=== PATIENT | female | born 1975 | race Hispanic/Latino ===

== ENCOUNTER → 2018-06-25 | Outpatient (REF) | payer OTHER ==
[2018-06-27 14:12] LABS: HPV HYBRID CAPTURE II Positive (Negative)
== END ==
LOC: M LAB REF 19:07
PROVIDERS: ATTEND Advanced Practice Midwife
DX: Z12.4 Encounter for screening for malignant neoplasm of cervix (principal)

== ENCOUNTER → 2018-12-02 | Outpatient (REF) | payer OTHER | LOC: M LAB REF 17:15 | PROVIDERS: ATTEND Specialist | DX: R87.612 Low grade squamous intraepithelial lesion on cytologic smear of cervix (LGSIL) (principal) ==

== ENCOUNTER 2019-02-18 07:06 | Day surgery (SDC) | payer OTHER ==
[~2019-02-18] VITALS: Ht 167.6 cm; Wt 70.8 kg
[~2019-02-18 07:06] MED LIST: LIDOCAINE 1% MDV 20ML VIAL SQ PRN; LR 1,000 ML IV ONE
[2019-02-18 07:38] LABS: HEMATOCRIT 34.1 % (36.0-47.0); HEMOGLOBIN 11.1 g/dl (12.0-15.5); MEAN CORPUSCULAR HEMOGLOBIN 29.3 pg (27.0-33.0); MEAN CORPUSCULAR HGB CONC 32.6 g/dl (32.0-36.5); PLATELET COUNT, AUTOMATED 371 10^3/uL (150-450); RED BLOOD COUNT 3.79 10^6/uL (4.00-5.40); WHITE BLOOD COUNT 8.2 10^3/uL (4.0-10.0)
[2019-02-18] MEDS ORDERED: BUPIVACAINE HCL 0.25% 30 ML VIAL As Ordered ONE (08:00)
[2019-02-18] MEDS ORDERED: PROPOFOL 200 MG/20 ML VIAL As Ordered ONE (08:35)
[2019-02-18] MEDS ORDERED: LIDOCAINE 2% INJ 100 MG/5 ML SDV (FOR ANES.) As Ordered ONE (08:35)
[2019-02-18] MEDS ORDERED: KETOROLAC 60 MG/2 ML VIAL (J1885) As Ordered ONE (08:35)
[2019-02-18] MEDS ORDERED: MIDAZOLAM INJ 2 MG/2 ML VIAL (J2250) As Ordered ONE (08:35)
[2019-02-18] MEDS ORDERED: ONDANSETRON 4MG/2ML VIAL (J2405) As Ordered ONE (08:35)
[2019-02-18] MEDS ORDERED: fentaNYL 100 MCG/2 ML INJECTION (J3010) As Ordered ONE (08:35)
[2019-02-18] MEDS ORDERED: dexameTHASONE 4 MG/ML 1ML VIAL (J1100) As Ordered ONE (08:35)
[2019-02-18] MEDS ORDERED: ceFAZolin 2 GM/D5W 50 ML IV BAG (J0690 PER 500MG) As Ordered ONE (08:48)
[2019-02-18] MEDS ORDERED: ONDANSETRON 4MG/2ML VIAL (J2405) IV PRN (09:45)
[2019-02-18] MEDS ORDERED: PERCOCET 5MG/325MG TAB PO PRN ×2 (09:45)
[2019-02-18] MEDS ORDERED: fentaNYL 100 MCG/2 ML INJECTION (J3010) IV PRN (09:45)
[2019-02-18] MEDS ORDERED: LR 1,000 ML IV SCH ×2 (09:45)
[2019-02-18] MEDS ORDERED: OXYC1TAB23 PO (10:38)
--- NOTE | 2019-02-18 11:30 | RO ---
DATE OF PROCEDURE: 02/18/2019 PREOPERATIVE DIAGNOSIS: Stress urinary incontinence. POSTOPERATIVE DIAGNOSIS: Stress urinary incontinence. PROCEDURE: Tension free vaginal tape, obturator approach, cystoscopy. SURGEON: Sachin Bryant MD WEB PRESSMAN: ANESTHESIA: General endotracheal. ESTIMATED BLOOD LOSS: 20 mL. URINE OUTPUT: 20 mL. FINDINGS: Normal vagina. Normal bladder upon cystoscopy as well as urethra. OPERATIVE SUMMARY: The patient was taken to the operating room where general endotracheal anesthesia was induced. She was prepped and draped in a sterile fashion in dorsal lithotomy position. The bladder was emptied with a catheter. The appropriate areas in the groin were marked with a marking pen. A dilute solution of 0.25% Marcaine was injected into the groin sites as well as the midline vagina. The midline vagina, approximately 1 cm from the urethral meatus was grasped with an Allis clamp in two locations. A vertical incision was created with a scalpel. The edges of the vaginal incision were grasped with the Allis clamp. Metzenbaum scissors were used to dissect the perivesical space bilaterally. A wing guide was placed into the right perivesical space. A GYNECARE TVT device was placed over the wing guide and through the incision. It passed through the obturator foramen and exited through the groin at the predetermined location. The same was performed on the opposite side. The mesh along with protective sheath was pulled into place. Opal clamp was placed between the mesh and the urethra to ensure a tension free application. The protective sheath was then removed. Excess mesh was excised. The vaginal incision was irrigated with saline. The vagina was closed with #2-0 Vicryl interrupted sutures. Cystoscopy was performed using a 70 degree cystoscope. There was on evidence of injury to the bladder or urethra. Bilateral ureteral jets were identified. The cystoscope was removed. Sponge, instrument and needle counts were correct. The patient was extubated and went to the recovery room in stable condition.
== END 2019-02-18 12:06 | disposition home or self-care (01) ==
LOC: M SDC 07:06 → MERGE 12:00 → M SDC 12:06
PROVIDERS: ATTEND Specialist
DX: N39.3 Stress incontinence (female) (male) (principal)
CPT/HCPCS: 36415; 57288; 81025; 85027; C1771; J0690; J1100; J1885; J2250; J2405; J3010

== ENCOUNTER → 2019-03-24 | Outpatient (REF) | payer OTHER ==
[~2019-03-24] MED LIST changes: -LIDOCAINE 1% MDV 20ML VIAL SQ PRN; -LR 1,000 ML IV ONE; +OXYC1TAB23 PO
[2019-03-24 18:02] LABS: APPEARANCE, URINE HAZY (CLEAR); BACTERIA, URINE AUTO 3+ (NEGATIVE); BILIRUBIN, URINE AUTO NEGATIVE (NEGATIVE); BLOOD, URINE BLOOD NEGATIVE (NEGATIVE); COLOR, URINE YELLOW (YELLOW); GLUCOSE, URINE (UA) AUTO NEGATIVE (NEGATIVE); KETONE, URINE AUTO NEGATIVE (NEGATIVE); LEUKOCYTE ESTERASE, URINE AUTO TRACE (NEGATIVE); MUCUS, URINE SMALL (NEGATIVE); NITRITE, URINE AUTO POSITIVE (NEGATIVE); PROTEIN, URINE AUTO NEGATIVE (NEGATIVE); RBC, URINE AUTO 1 /HPF (0-3); SPECIFIC GRAVITY URINE AUTO 1.012 (1.002-1.035); SQUAMOUS EPITHELIAL CELL UR AU 1 /HPF (0-6); UROBILINOGEN, URINE AUTO 0.2 mg/dL (0.0-2.0); WBC, URINE AUTO 5 /HPF (0-3)
== END ==
LOC: M SFHCWAGY 16:52
PROVIDERS: ATTEND Specialist
DX: R30.0 Dysuria (principal)

== ENCOUNTER → 2019-05-06 | Outpatient (CLI) | payer OTHER ==
--- NOTE | 2019-05-06 16:06 | REPMRS ---
Patient History The patient states she had a clinical breast exam in 2019. Family history of colorectal cancer in maternal grandmother. Patient states she had a left breast lumpectomy years ago that was negative. Priors no longer available Digital Woman Screen Mammo: May 06, 2019 - Exam #: [id number] Bilateral CC and MLO view(s) were taken. Technologist: Kendra Chicas, Technologist No prior studies available for comparison. FINDINGS: The breast tissue is heterogeneously dense. This may lower the sensitivity of mammography. There is no evidence of dominant mass, architectural distortion, or grouped microcalcification typical of malignancy. Assessment: BI-RADS/ACR category 1 mammogram. Negative Mammogram. Recommendation Routine screening mammogram of both breasts in 1 year (for women over age 40). This patient's Lifetime Breast Cancer RIsk is estimated at 10.0 %. This mammogram was interpreted with the aid of an FDA-approved computer-aided dectection system. Electronically Signed By: Eleazar Dan MD 05/06/19 [id number]
== END ==
LOC: M WHC 15:17
PROVIDERS: ATTEND Specialist
DX: Z12.31 Encounter for screening mammogram for malignant neoplasm of breast (principal)

== ENCOUNTER 2019-10-16 12:33 | Emergency (ER) | payer OTHER ==
[2019-10-16] MEDS ORDERED: ZOSYN 3.375GM VIAL (J2543) ONE (14:17)
[2019-10-16] MEDS ORDERED: PANTOPRAZOLE 40MG VIAL (C9113 PER 1) As Ordered ONE (14:17)
[2019-10-16] MEDS ORDERED: ACETAMINOPHEN 500 MG TAB ONE (14:17)
[2019-10-16] MEDS ORDERED: KETOROLAC 30 MG/ML 1ML VIAL ONE (14:17)
[2019-10-16] MEDS ORDERED: PANTOPRAZOLE 40MG VIAL (C9113 PER 1) ONE (14:17)
[2019-10-16] MEDS ORDERED: ACETAMINOPHEN 500 MG TAB As Ordered ONE (14:18)
[2019-10-16] MEDS ORDERED: KETOROLAC 30 MG/ML 1ML VIAL As Ordered ONE (17:32)
[2019-10-16] MEDS ORDERED: ZOSYN 3.375GM VIAL (J2543) As Ordered ONE (17:32)
[2019-11-17 12:37] LABS: BASO % 0.4 % (0.0-1.0); EOS # 0.1 10^3/uL (0.0-0.5); EOS % 1.3 % (0.0-3.0); HEMATOCRIT 34.8 % (36.0-47.0); HEMOGLOBIN 11.2 g/dl (12.0-15.5); LYMPH # 2.2 10^3/uL (1.5-5.0); LYMPH % 23.5 % (24.0-44.0); MEAN CORPUSCULAR HEMOGLOBIN 29.2 pg (27.0-33.0); MEAN CORPUSCULAR HGB CONC 32.2 g/dl (32.0-36.5); MEAN CORPUSCULAR VOLUME 90.6 fl (80.0-96.0); MONO # 0.6 10^3/uL (0.0-0.8); MONO % 6.5 % (0.0-5.0); NEUTROPHILS # 6.3 10^3/uL (1.5-8.5); NEUTROPHILS % 68.1 % (36.0-66.0); PLATELET COUNT, AUTOMATED 323 10^3/uL (150-450); RED BLOOD COUNT 3.84 10^6/uL (4.00-5.40); WHITE BLOOD COUNT 9.3 10^3/uL (4.0-10.0)
--- NOTE | 2019-11-27 09:53 | ECGEPIP ---
[facility] Test Date: 2019-10-16 Pat Name: JHONY JAY Department: Room: - Gender: Female Grab Driver: : 1975 Requested By: EMERGENCY ROOM Order Number: [id number] Reading MD: Reji Cardenas Measurements Intervals [place] Rate: 72 P: 16 WV: 146 QRS: 3 QRSD: 87 T: 19 QT: 382 QTc: 418 Interpretive Statements SINUS RHYTHM POSSIBLE RIGHT VENTRICULAR CONDUCTION DELAY BORDERLINE ECG INCREASED RBBB SEE SCANNED DOWNTIME REPORT
[2019-11-30 11:29] LABS: ALBUMIN 3.5 GM/DL (3.2-5.2); ALT/SGPT 21 U/L (12-78); AMYLASE 74 U/L (25-115); BILIRUBIN,DIRECT 0.4 MG/DL (0.0-0.2); BILIRUBIN,TOTAL 1.9 MG/DL (0.2-1.0); BLOOD UREA NITROGEN 8 MG/DL (7-18); CALCIUM LEVEL 8.8 MG/DL (8.5-10.1); CARBON DIOXIDE LEVEL 24 MEQ/L (21-32); CHLORIDE LEVEL 109 MEQ/L (98-107); CREATININE FOR GFR 0.81 MG/DL (0.55-1.30); GLOMERULAR FILTRATION RATE > 60.0 (>58); GLUCOSE, FASTING 90 MG/DL (70-100); LIPASE 159 U/L (73-393); POTASSIUM SERUM 4.2 MEQ/L (3.5-5.1); SODIUM LEVEL 139 MEQ/L (136-145); TOTAL PROTEIN 7.4 GM/DL (6.4-8.2); TROPONIN I < 0.02 NG/ML (< 0.10)
== END 2019-10-16 20:26 | disposition home or self-care (01) ==
LOC: M ED 12:33
DX: K80.00 Calculus of gallbladder with acute cholecystitis without obstruction (principal); E80.6 Other disorders of bilirubin metabolism; M54.9 Dorsalgia, unspecified
CPT/HCPCS: 71046; 76705; 80048; 80076; 82150; 83690; 84484; 85025; 93005; 96374; 96375; 99284; C9113; J1885; J2543

== ENCOUNTER 2019-11-09 07:16 | Day surgery (SDC) | payer OTHER ==
[~2019-11-09] VITALS: Ht 167.6 cm; Wt 73.4 kg
[2019-11-09] MEDS ORDERED: fentaNYL 100 MCG/2 ML INJECTION (J3010) As Ordered ONE ×2 (08:09→10:27)
[2019-11-09] MEDS ORDERED: MIDAZOLAM INJ 2MG/2ML VIAL (J2250 PER 1MG) As Ordered ONE (08:09)
[2019-11-09] MEDS ORDERED: LIDOCAINE 2% 100MG/5ML SDV (FOR ANES.) As Ordered ONE (08:10)
[2019-11-09] MEDS ORDERED: propofoL 200 MG/20 ML VIAL As Ordered ONE (08:10)
[2019-11-09] MEDS ORDERED: ONDANSETRON 4MG/2ML VIAL As Ordered ONE (08:10)
[2019-11-09] MEDS ORDERED: ROCURONIUM BROMIDE 50 MG/5 ML VIAL As Ordered ONE (08:10)
[2019-11-09] MEDS ORDERED: dexameTHASONE 4 MG/ML 1ML VIAL (J1100 PER 1MG) As Ordered ONE (08:10)
[2019-11-09] MEDS ORDERED: BUPIVACAINE/EPIN 0.25% 30 ML VIAL As Ordered ONE (09:54)
[2019-11-09] MEDS ORDERED: GLYCOPYRROLATE INJ 0.2 MG/ML 2 ML VIAL As Ordered ONE (10:13)
[2019-11-09] MEDS ORDERED: ACETAMINOPHEN 1000MG 100ML IV BTL (OFIRMEV) (J0131 PER 10MG) As Ordered ONE (10:26)
[2019-11-09] MEDS ORDERED: ESMOLOL INJ 100MG/10ML VIAL As Ordered ONE (10:34)
[2019-11-09] MEDS ORDERED: SUGAMMADEX SODIUM 500 MG/5 ML VIAL (BRIDION) As Ordered ONE (10:49)
[2019-11-09] MEDS ORDERED: KETOROLAC 60MG 2ML VIAL As Ordered ONE (10:49)
[2019-11-09] MEDS ORDERED: HYDROMORPHONE HCL 0.5 MG/ 0.5 ML SYRINGE (J1170 PER 1) As Ordered ONE (11:49)
[2019-11-09] MEDS: HYDROMORPHONE HCL 0.5 MG/ 0.5 ML SYRINGE (J1170 PER 1) IV PRN ×4 (11:52→12:12)
[2019-11-09] MEDS ORDERED: NORCO, ANEXSIA 5/325MG TABLET (HYDROcodone/ACETAMINOPHEN) PO PRN (12:00)
[2019-11-09] MEDS ORDERED: ONDANSETRON 4MG/2ML VIAL IV PRN (12:00)
[2019-11-09] MEDS ORDERED: LR 1,000 ML IV SCH (12:00)
[2019-11-09] MEDS ORDERED: fentaNYL 100 MCG/2 ML INJECTION (J3010) IV PRN (12:00)
[2019-11-09] MEDS: oxyCODONE 5MG TAB PO PRN ×2 (12:03→12:35)
[2019-11-09 15:45] VITALS: BP 122/63
--- NOTE | 2019-12-25 06:44 | RO ---
DATE OF OPERATION: 11/09/2019 PREOPERATIVE DIAGNOSIS: Symptomatic cholelithiasis. POSTOPERATIVE DIAGNOSIS: Symptomatic cholelithiasis. PROCEDURE: Robotic cholecystectomy. SURGEON: Osvaldo Shipley DO IGNITER CAPPER: Linda Bautista ANESTHESIA: General. ESTIMATED BLOOD LOSS: 5. COMPLICATIONS: None. INDICATIONS FOR PROCEDURE: The patient is a 44-year-old female who presents with right upper quadrant pain and found to have symptomatic cholelithiasis. Recommendation was to proceed with a robotic cholecystectomy. Risks and benefits of the procedure not limited to, but including bleeding, infection, hernia formation, damage to surrounding structures and need for further surgery were discussed in detail with the patient. Informed consent was obtained and procedure was planned. DESCRIPTION OF PROCEDURE: The patient was brought back to operating room 7. After sufficient sedation, the abdomen was sterilely prepped and draped. Next, timeout was done to confirm proper patient and proper procedure. Following that, an 8 mm incision was made in the left upper quadrant, and the Veress needle was inserted. The abdomen was insufflated to 15 mmHg. Veress needle was then removed and an 8-mm Optiview port was used to gain access to the abdomen. Once the abdomen was entered, three more ports were placed across the upper abdomen into the right upper quadrant. Next the robot was docked to the ports. From the ports, gallbladder was elevated up towards the right shoulder. The cystic duct and cystic artery were carefully dissected free using a combination of blunt and sharp dissection. Once they were both clearly identified, they were both doubly clipped and cut. The gallbladder was then dissected free from the gallbladder fossa using cautery and was placed inside of a 5-mm Endo Catch bag and brought out through the right-sided port site. Once that was completed the fascia of the right side port site was closed intraperitoneally using a 2-0 V-Loc suture. Once that was sutured closed, the abdomen was desufflated. Skin incisions were closed with 4-0 Vicryl subcuticular sutures. The abdomen was cleaned and dried. Steri-Strips, 4x4, and tape were applied. MTDD
== END 2019-11-09 16:00 | disposition home or self-care (01) ==
LOC: M SDC 07:16
PROVIDERS: ATTEND Surgery
DX: K80.10 Calculus of gallbladder with chronic cholecystitis without obstruction (principal)
CPT/HCPCS: 47562; 81025; 88304; J0131; J1100; J1170; J1885; J2250; J2405; J3010

== ENCOUNTER → 2020-07-06 | Outpatient (REF) | payer OTHER | LOC: M SFHCWAGY 09:57 | PROVIDERS: ATTEND Specialist | DX: Z01.419 Encounter for gynecological examination (general) (routine) without abnormal findings (principal); Z12.4 Encounter for screening for malignant neoplasm of cervix ==

== ENCOUNTER → 2020-07-12 | Outpatient (CLI) | payer OTHER ==
--- NOTE | 2020-07-12 12:28 | REPMRS ---
Patient History The patient states she had a clinical breast exam in June 2020. Family history of colorectal cancer in maternal grandmother. Excisional biopsy of the left breast, 2017. Patient states no breast complaints. Patient has signed the [facility] history sheet. Digital Woman Screen Mammo: July 12, 2020 - Exam #: [id number] Bilateral CC and MLO view(s) were taken. Technologist: Dena Campbell, Technologist Prior study comparison: May 06, 2019, bilateral digital woman screen mammo performed at [facility]. FINDINGS: The breast tissue is heterogeneously dense. This may lower the sensitivity of mammography. Screening. Digital screening (2D) mammography was performed bilaterally in the CC and MLO projections. Additionally, breast tomosynthesis (3D mammography) was performed bilaterally in the CC and MLO projections. Todays exam was compared to the prior exams(s). By history, the patient has no complaints of a palpable breast abnormality or other significant breast complaints. The breasts are unchanged in size and shape. Once again, dense heterogenous fibroglandular elements are seen bilaterally in a stable appearing pattern but to such a degree that the sensitivity of the mammogram in detecting cancer is decreased.There are no jun-soft tissue densities or spiculated masses. There is no internal architectural distortion. There are no suspicious jun-calcific clusters. Skin thickening or nipple retraction is not present. IMPRESSION: The Volpara volumetric breast density category is C, the breasts are heterogenously dense which may obscure small masses. BI-RADS Category 2- Benign Findings(s). There is no evidence of malignant alteration of the breasts. Followup examination recommended in one year. The lifetime Tyrer-Cuzick score is 9.9 % This mammogram was read with the assistance of Kindara,an FDA approved computer aided detection system for mammography. Negative x-ray reports should not delay surgical consultation if a dominant or clinically suspicious mass is present. Not all breast cancers can be identified by mammography. Therefore, we recommend that you continue to perform regular breast self-examination and physical examination and then promptly contact your physician of any concerns or changes. Adenosis and dense breasts may obscure an underlying neoplasm. Assessment: BI-RADS/ACR category 2 mammogram. Benign Findings. Recommendation Routine screening mammogram of both breasts in 1 year. Electronically Signed By: Lonny Wheeler DO 07/12/20 [id number]
== END ==
LOC: M WHC 11:16
PROVIDERS: ATTEND Specialist
DX: Z12.31 Encounter for screening mammogram for malignant neoplasm of breast (principal)

== ENCOUNTER 2022-05-09 21:44 | Emergency (ER) | payer OTHER ==
[~2022-05-09] VITALS: Ht 167.6 cm; Wt 75.7 kg
[2022-05-09 21:45] VITALS: BP 119/71
== END 2022-05-10 00:52 | disposition left against medical advice (07) ==
LOC: M ED 21:44
DX: Z53.21 Procedure and treatment not carried out due to patient leaving prior to being seen by health care provider (principal)

== ENCOUNTER 2022-05-10 14:31 | Emergency (ER) | payer OTHER ==
[~2022-05-10] VITALS: Ht 167.6 cm; Wt 76.3 kg
[2022-05-10] MEDS ORDERED: ISOVUE-370 76% 100ML VIAL As Ordered ONE (16:33)
[2022-05-10 16:49] LABS: INR 1.01; PROTHROMBIN TIME 13.5 SECONDS (12.5-14.5)
[2022-05-10 16:50] LABS: PARTIAL THROMBOPLASTIN TIME 29.6 SECONDS (24.8-34.2)
[2022-05-10 16:56] LABS: BASO # 0.1 10^3/uL (0.0-0.2); BASO % 0.5 % (0.0-1.0); EOS # 0.1 10^3/uL (0.0-0.5); EOS % 1.3 % (0.0-3.0); HEMATOCRIT 37.8 % (36.0-47.0); LYMPH # 3.6 10^3/uL (1.5-5.0); LYMPH % 35.7 % (24.0-44.0); MEAN CORPUSCULAR HGB CONC 31.7 g/dl (32.0-36.5); MEAN CORPUSCULAR VOLUME 88.3 fl (80.0-96.0); MONO # 0.5 10^3/uL (0.0-0.8); MONO % 5.3 % (2.0-8.0); NEUTROPHILS # 5.7 10^3/uL (1.5-8.5); PLATELET COUNT, AUTOMATED 386 10^3/uL (150-450); RED BLOOD COUNT 4.28 10^6/uL (4.00-5.40)
[2022-05-10 16:57] LABS: BLOOD UREA NITROGEN 16 MG/DL (9-23); CALCIUM LEVEL 9.9 MG/DL (8.5-10.1); CARBON DIOXIDE LEVEL 25 MMOL/L (20-31); CHLORIDE LEVEL 106 MMOL/L (98-107); CK-MB VALUE MASS 1.5 NG/ML (<3.6); CPK CREATINE PHOSPHOKINASE 156 U/L (34-145); CREATININE FOR GFR 0.93 MG/DL (0.55-1.30); GLOMERULAR FILTRATION RATE > 60.0 (>58); GLUCOSE, FASTING 91 MG/DL (60-100); MB/CK RELATIVE INDEX 0.96 (< OR =4); POTASSIUM SERUM 4.1 MMOL/L (3.5-5.1); SODIUM LEVEL 139 MMOL/L (136-145)
[2022-05-10 17:25] LABS: RSV AMPLIFICATION NEGATIVE (NEGATIVE)
[2022-05-10] MEDS ORDERED: METOCLOPRAMIDE INJ 10MG/2ML VIAL IV ONE (18:05)
[2022-05-10] MEDS ORDERED: KETOROLAC 30 MG/ML 1ML VIAL IV ONE (18:05)
[2022-05-10] MEDS ORDERED: NS 1,000 ML IV ONE (18:05)
[2022-05-10] MEDS ORDERED: diphenhydrAMINE 50MG/ML VIAL IV ONE (18:05)
[2022-05-10] MEDS ORDERED: ACETAMINOPHEN 500 MG TAB PO ONE (18:05)
[2022-05-10 20:35] VITALS: BP 118/70
== END 2022-05-10 21:02 | disposition home or self-care (01) ==
LOC: M ED 14:31
DX: G43.809 Other migraine, not intractable, without status migrainosus (principal)
CPT/HCPCS: 70450; 70496; 70498; 70551; 71045; 80047; 80048; 82550; 82553; 84484; 85025; 85610; 85730; 87631; 93005; 93041; 94760; 96374; 96375; 99285; J1200; J1885; J2765

== ENCOUNTER → 2022-08-08 | Day surgery (SDC) | payer OTHER ==
[~2022-08-08] VITALS: Ht 167.6 cm; Wt 79.7 kg
[~2022-08-08] MED LIST changes: +NS 1,000 ML IV ONE; +propofoL 200 MG/20 ML VIAL As Ordered ONE
[2022-08-08 08:04] VITALS: BP 117/69
== END | disposition home or self-care (01) ==
LOC: M OPP 06:23
PROVIDERS: ATTEND Surgery
DX: Z12.11 Encounter for screening for malignant neoplasm of colon (principal); Z80.0 Family history of malignant neoplasm of digestive organs; K64.0 First degree hemorrhoids

== ENCOUNTER → 2022-08-17 | Outpatient (CLI) | payer OTHER ==
[~2022-08-17] MED LIST changes: -NS 1,000 ML IV ONE; -propofoL 200 MG/20 ML VIAL As Ordered ONE
== END ==
LOC: M WHC 14:44
PROVIDERS: ATTEND Specialist
DX: Z12.31 Encounter for screening mammogram for malignant neoplasm of breast (principal); Z98.82 Breast implant status